=== PATIENT | male | born 1965 | race Caucasian/White ===

== ENCOUNTER → 2016-09-11 | Outpatient (CLI) | payer OTHER ==
[~2016-09-11] MED LIST: ASPIRIN 81M81 MG/TA2 PO; BACTRIM DS 8001 TAB PO; CARDIZEM CD 12120 MG PO; NO HOME MEDICATIONS; PRIL40 PO; TAMBOCOR150 MG PO
== END ==
LOC: COL.RAD 14:01
DX: E07.9 Disorder of thyroid, unspecified (principal); R13.10 Dysphagia, unspecified; E03.9 Hypothyroidism, unspecified

== ENCOUNTER 2016-11-27 22:55 | Emergency (ER) | payer OTHER ==
[~2016-11-27] VITALS: Ht 182.9 cm; Wt 116.6 kg
[~2016-11-27 22:55] MED LIST changes: -ASPIRIN 81M81 MG/TA2 PO; -CARDIZEM CD 12120 MG PO; -PRIL40 PO; -TAMBOCOR150 MG PO
[2016-11-27 22:59] VITALS: BP 139/80; TEMP 97.8
[2016-11-27] MEDS ORDERED: ASPIRIN 81M81 MG/TA2 PO (23:30)
[2016-11-27] MEDS ORDERED: CARDIZEM CD 12120 MG PO (23:30)
[2016-11-27] MEDS ORDERED: TAMBOCOR150 MG PO (23:31)
[2016-11-27] MEDS ORDERED: PRIL40 PO (23:31)
[2016-11-27 23:57] LABS: BASO % 0.2 % (0.0-2.0); EOS # 0.2 (0.0-0.7); EOS % 1.3 % (0-4.0); GRAN # 13.6 (1.4-6.5); GRAN % 82.8 % (42.2-75.2); HEMATOCRIT 45.2 % (42.0-52.0); HEMOGLOBIN 15.3 g/dl (13.5-18.0); LYMPH # 1.1 (1.2-3.4); LYMPH % 6.6 % (20.0-51.0); MEAN CELL VOLUME 92 fl (80.0-100.0); MEAN CORPUSCULAR HEMOGLOBIN 31 pg (27.0-31.0); MEAN CORPUSCULAR HGB CONC 34 g/dl (33.0-37.0); MEAN PLATELET VOLUME 10.6 fl (7.4-10.4); MONO # 1.4 (0.1-0.6); MONO % 8.7 % (1.7-9.3); PLATELET COUNT 294 K/mm3 (130-400); RED BLOOD COUNT 4.92 M/mm3 (4.20-5.60); REDCELL DISTRIBUTION WIDTH-CV 14.1 % (11.5-14.5)
[2016-11-28 00:14] LABS: ALBUMIN 4.2 gm/dL (3.5-5.0); BILIRUBIN,TOTAL 0.7 mg/dL (0.0-1.0); C-REACTIVE PROTEIN 0.7 mg/dL (0.0-0.9); CALCIUM 9.2 mg/dL (8.4-10.2); CREATININE, serum 1.03 mg/dL (0.66-1.25); POTASSIUM 3.2 mmol/L (3.4-5.0); TOTAL PROTEIN 7.4 gm/dL (6.4-8.2)
[2016-11-28 00:51] LABS: PH 5 (5-8); SQUAMOUS EPITHELIAL 0-2 /hpf; URINE APPEARANCE Hazy; URINE BACTERIA None Seen /hpf; URINE BILIRUBIN Negative (NEGATIVE); URINE BLOOD Negative (NEGATIVE); URINE COLOR Amber; URINE GLUCOSE Negative (NEGATIVE); URINE KETONE Negative (NEGATIVE); URINE RBC 0-2 /hpf; URINE UROBILINOGEN Negative (NEGATIVE)
[2016-11-28 01:37] VITALS: PULSE 82
== END 2016-11-28 01:37 | disposition home or self-care (01) ==
LOC: COL.ER 22:55
PROVIDERS: Family Medicine
DX: E86.9 Volume depletion, unspecified (principal); K64.9 Unspecified hemorrhoids; Z79.82 Long term (current) use of aspirin
CPT/HCPCS: J2405; J7030